=== PATIENT | female | born 1990 | race Hispanic/Latino ===

== ENCOUNTER 2017-10-13 09:24 | Observation (INO) | payer OTHER, MEDICAID ==
[~2017-10-13 09:24] MED LIST: FERR15DR26 PO; IRON-21 PO; PREN1TAB26 PO
== END 2017-10-13 10:52 | disposition home or self-care (01) ==
LOC: LDH 09:24
DX: Z34.93 Encounter for supervision of normal pregnancy, unspecified, third trimester (principal); Z3A.31 31 weeks gestation of pregnancy
CPT/HCPCS: 59025; 76819; G0378 ×2

== ENCOUNTER 2017-11-05 08:58 | Inpatient (IN) | payer OTHER, MEDICAID ==
[~2017-11-05] VITALS: Ht 149.9 cm; Wt 106.6 kg
[2017-11-05 09:44] VITALS: BP 114/53
[2017-11-05] MEDS ORDERED: LACTATED RINGERS 1000ML 1,000 ML IV PRN (11:05)
[2017-11-05] MEDS ORDERED: METOCLOPRAMIDE 10 MG/2 ML VIAL IVP SCH (11:15)
[2017-11-05] MEDS ORDERED: MORPHINE SULFATE 10 MG/ML 1ML SYG IM SCH (12:30)
[2017-11-05] MEDS ORDERED: ACETAMINOPHEN EXTENDED RELEASE 650 MG TABLET PO PRN (12:30)
[2017-11-06] MEDS ORDERED: LACTATED RINGERS 1000ML 1,000 ML IV SCH (08:45)
[2017-11-06] MEDS ORDERED: CEFAZOLIN SODIUM 1 GM VIAL IVP PRN (08:45)
[2017-11-06] MEDS ORDERED: CALDOLOR 800MG+NS 250ML 250 ML IV PRN (08:45)
[2017-11-06] MEDS ORDERED: CEFAZOLIN SODIUM 1 GM VIAL ONE (09:09)
[2017-11-06] MEDS ORDERED: CALDOLOR 800MG+NS 250ML 250 ML IV ONE (09:09)
[2017-11-06] MEDS ORDERED: OXYTOCIN 10 USP UNITS/ML ONE (09:09)
[2017-11-06 09:11] LABS: HEMATOCRIT 35.8 % (36-48); MEAN CORPUSCULAR HEMOGLOBIN 26.1 pg (27.0-33.0); MEAN CORPUSCULAR HGB CONC 33.3 g/dL (32.0-36.0); MEAN CORPUSCULAR VOLUME 78.4 fL (79-99); PLATELET COUNT (AUTO) 235 K/uL (130-400); RED BLOOD CELL COUNT(AUTO) 4.56 MIL/uL (4.00-5.50); RED CELL DISTRIBUTION WIDTH 15.5 % (11.0-15.5); WHITE BLOOD COUNT (AUTO) 11.3 K/uL (4.8-10.8)
[2017-11-06] MEDS ORDERED: EPHEDRINE-NS PF 50MG/5ML SYRINGE IV ONE (09:26)
[2017-11-06] MEDS ORDERED: CEFAZOLIN SODIUM 1 GM VIAL IVP ONE (09:30)
[2017-11-06] MEDS ORDERED: MIDAZOLAM HCL 1 MG/ML 2ML VIAL ONE (09:30)
[2017-11-06] MEDS ORDERED: OXYTOCIN 10 UNIT/1ML 10ML VIAL ONE (09:44)
[2017-11-06] MEDS ORDERED: OXYTOCIN-LR 20 UNITS/1000 ML 1,000 ML IV PRN ×2 (10:07→12:04)
[2017-11-06] MEDS ORDERED: BISACODYL 10 MG SUPP.RECT RC PRN (10:15)
[2017-11-06] MEDS ORDERED: PROMETHAZINE HCL 25 MG/ML 1ML AMPULE IM PRN ×2 (10:15→15:45)
[2017-11-06] MEDS ORDERED: NALOXONE HCL 0.4 MG/1 ML ML IVP PRN ×3 (10:15→15:45)
[2017-11-06] MEDS: IBUPROFEN 800 MG TAB PO SCH ×2 (10:15→18:15)
[2017-11-06] MEDS ORDERED: MEPERIDINE 10MG/ML 50ML PCA 50 ML IV PRN (10:15)
[2017-11-06] MEDS ORDERED: METOCLOPRAMIDE 10 MG/2 ML VIAL IV PRN (10:15)
[2017-11-06] MEDS ORDERED: ONDANSETRON HCL 4 MG/2 ML VIAL IV PRN (10:15)
[2017-11-06] MEDS ORDERED: DIPHENHYDRAMINE HCL 25 MG CAPSULE PO PRN (10:15)
[2017-11-06] MEDS ORDERED: SODIUM CHLORIDE 0.9% 10 ML VIAL IVP PRN (10:15)
[2017-11-06] MEDS ORDERED: MEPERIDINE-PF 25 MG/ML SYG ONE (11:49)
[2017-11-06 13:26] VITALS: BP 99/75
[2017-11-06] MEDS: MEPERIDINE-PF 75 MG/ML SYG IM PRN ×2 (14:19→18:49)
[2017-11-06] MEDS: PROMETHAZINE HCL 25 MG/ML 1ML AMPULE IM PRN (14:19)
[2017-11-06] MEDS ORDERED: PREN1COM14 PO (15:27)
[2017-11-06 15:41] VITALS: BP 104/47
[2017-11-06] MEDS ORDERED: METOCLOPRAMIDE 10 MG/2 ML VIAL IVP PRN (15:45)
[2017-11-06] MEDS ORDERED: DiphenhydrAMINE HCL 50 MG/ML VIAL IVP PRN (15:45)
[2017-11-06] MEDS ORDERED: ONDANSETRON HCL 4 MG/2 ML VIAL IVP PRN ×2 (15:45)
[2017-11-06] MEDS ORDERED: EPHEDRINE SULFATE 50 MG/ML AMPULE IVP PRN (15:45)
[2017-11-06] MEDS ORDERED: ONDANSETRON HCL 4 MG/2 ML 8 MG in SODIUM CHLORIDE 0.9% 50 ML IVP NR (15:45)
[2017-11-06] MEDS ORDERED: MORPHINE SULFATE 2 MG/ML 1ML SYG IVP PRN (15:45)
[2017-11-06] MEDS ORDERED: HYDROCODONE/ACETAMINOPHEN 5/325 MG TAB PO PRN (15:45)
[2017-11-06] MEDS: HYDROCODONE/ACETAMINOPHEN 5/325 MG TAB PO PRN ×2 (16:27→21:29)
[2017-11-06] MEDS: CEFAZOLIN 3GM /D5W 100ML 100 ML IV SCH (17:01)
[2017-11-06] MEDS: CALDOLOR 800MG+NS 250ML 250 ML IV SCH (18:48)
[2017-11-06 20:35] VITALS: BP 90/63
[2017-11-06] MEDS: SIMETHICONE 80 MG TAB.CHEW PO PRN ×2 (21:24→21:29)
[2017-11-06] MEDS: DEXTROSE 5 %-0.45 % NACL 1,000 ML IV PRN ×2 (21:24→23:24)
[2017-11-06] MEDS: DOCUSATE SODIUM 100 MG CAP PO SCH (21:24)
[2017-11-06 23:12] VITALS: BP 95/54
[2017-11-07] MEDS: CEFAZOLIN 3GM /D5W 100ML 100 ML IV SCH (01:02)
[2017-11-07] MEDS: CALDOLOR 800MG+NS 250ML 250 ML IV SCH (02:00)
[2017-11-07] MEDS: IBUPROFEN 800 MG TAB PO SCH ×2 (02:15→10:11)
[2017-11-07 03:55] VITALS: BP 98/55
[2017-11-07] MEDS: PROMETHAZINE HCL 25 MG/ML 1ML AMPULE IM PRN (05:01)
[2017-11-07] MEDS: MEPERIDINE-PF 75 MG/ML SYG IM PRN (05:02)
[2017-11-07 06:46] LABS: HEMATOCRIT 33.9 % (36-48); MEAN CORPUSCULAR HEMOGLOBIN 26.4 pg (27.0-33.0); MEAN CORPUSCULAR HGB CONC 33.2 g/dL (32.0-36.0); MEAN CORPUSCULAR VOLUME 79.7 fL (79-99); PLATELET COUNT (AUTO) 264 K/uL (130-400); RED BLOOD CELL COUNT(AUTO) 4.26 MIL/uL (4.00-5.50); RED CELL DISTRIBUTION WIDTH 15.7 % (11.0-15.5); WHITE BLOOD COUNT (AUTO) 11.6 K/uL (4.8-10.8)
[2017-11-07 07:37] VITALS: BP 101/62
[2017-11-07] MEDS ORDERED: DIPH,PERTUSS(ACELL),TET VAC/PF 0.5 ML VIAL IM SCH (08:15)
[2017-11-07] MEDS: DOCUSATE SODIUM 100 MG CAP PO SCH (08:38)
[2017-11-07] MEDS: SIMETHICONE 80 MG TAB.CHEW PO PRN (08:38)
[2017-11-07] MEDS: HYDROCODONE/ACETAMINOPHEN 5/325 MG TAB PO PRN ×3 (08:39→17:05)
[2017-11-07] MEDS ORDERED: LIDOCAINE 5% TOPICAL PATCH TP SCH (09:00)
[2017-11-07] MEDS ORDERED: IBUPROFEN 800 MG TAB PO SCH (10:15)
[2017-11-07 11:14] LABS: HEPATITIS Bs ANTIGEN SCREEN P Negative (Negative)
[2017-11-07 11:16] VITALS: BP 103/50
[2017-11-07 15:18] VITALS: BP 96/52
== END 2017-11-07 17:50 | disposition home or self-care (01) | DRG 765 ==
LOC: OBSVTOIN 08:58 → LDH 08:58 → WSH 11-06 13:25
PROC: 3E0234Z Introduction of Serum, Toxoid and Vaccine into Muscle, Percutaneous Approach (ICD-10-PCS; 2017-11-06)
PROC: 10D00Z1 Extraction of Products of Conception, Low, Open Approach (ICD-10-PCS; principal; 2017-11-06 09:00)
DX: O60.14X0 Preterm labor third trimester with preterm delivery third trimester, not applicable or unspecified (principal); O75.3 Other infection during labor; A41.9 Sepsis, unspecified organism; O41.03X0 Oligohydramnios, third trimester, not applicable or unspecified; O24.420 Gestational diabetes mellitus in childbirth, diet controlled; O34.211 Maternal care for low transverse scar from previous cesarean delivery; O99.89 Other specified diseases and conditions complicating pregnancy, childbirth and the puerperium; Z37.0 Single live birth; Z3A.35 35 weeks gestation of pregnancy; Z23 Encounter for immunization
CPT/HCPCS: 36415; 59025; 59510; 76819; 82947; 82948; 85027; 86592; 86850; 86900; 86901; 87340; 90715; 96360; 96361; A4344; A4606; J0690; J1741; J2175; J2250; J2405; J2550; J2590; J2765; J3490; J7120

== ENCOUNTER 2017-11-15 18:48 | Emergency (ER) | payer OTHER, MEDICAID ==
[~2017-11-15 18:48] MED LIST changes: -FERR15DR26 PO; -IRON-21 PO; +PREN1COM14 PO; -PREN1TAB26 PO
[2017-11-15] MEDS ORDERED: CEPHALEXIN 500 MG CAPSULE ONE (19:42)
== END 2017-11-15 21:10 | disposition home or self-care (01) ==
LOC: EDH 18:48
DX: T81.4XXA Infection following a procedure, initial encounter (principal); Y83.8 Other surgical procedures as the cause of abnormal reaction of the patient, or of later complication, without mention of misadventure at the time of the procedure; Y92.89 Other specified places as the place of occurrence of the external cause

== ENCOUNTER 2021-04-11 11:52 | Emergency (ER) | payer MEDICAID, OTHER ==
[~2021-04-11] VITALS: Ht 152.4 cm; Wt 90.7 kg
[2021-04-11 11:54] VITALS: BP 116/69
[2021-04-11 13:18] LABS: CREATININE 0.5 mg/dL (0.5-1.5); POTASSIUM 3.6 mmol/L (3.5-5.1)
[2021-04-11 13:20] LABS: BASOPHILS % (AUTO) 0.2 % (0.0-5.0); EOSINOPHILS % (AUTO) 2.4 % (0.0-8.0); HEMATOCRIT 40.1 % (36-48); MEAN CORPUSCULAR HEMOGLOBIN 25.2 pg (27.0-33.0); MEAN CORPUSCULAR HGB CONC 32.2 g/dL (32.0-36.0); MEAN CORPUSCULAR VOLUME 78.5 fL (79-99); MONOCYTES % (AUTO) 5.5 % (3.0-13.0); NEUTROPHILS % (AUTO) 73.6 % (40.0-77.0); PLATELET COUNT (AUTO) 293 K/uL (130-400); RED BLOOD CELL COUNT(AUTO) 5.11 MIL/uL (4.00-5.50); RED CELL DISTRIBUTION WIDTH 15.6 % (11.0-15.5); WHITE BLOOD COUNT (AUTO) 10.6 K/uL (4.8-10.8)
[2021-04-11 13:46] LABS: ALBUMIN 3.6 g/dL (3.5-5.0); BILIRUBIN,TOTAL 0.2 mg/dL (0.2-1.0); TOTAL PROTEIN, SERUM 8.6 g/dL (6.0-8.3)
[2021-04-11] MEDS ORDERED: CEFTRIAXONE 1G VIAL IVP SCH (14:30)
[2021-04-11] MEDS ORDERED: ACETAMINOPHEN 325 MG TAB PO ONE (14:30)
[2021-04-11] MEDS ORDERED: PNV1TABL17 PO (14:49)
[2021-04-11] MEDS ORDERED: DIPH25 PO (14:49)
[2021-04-11] MEDS ORDERED: CEPH500B PO (14:49)
== END 2021-04-11 16:00 | disposition home or self-care (01) ==
LOC: EDH 11:52
DX: O20.0 Threatened abortion (principal); O99.891 Other specified diseases and conditions complicating pregnancy; H60.91 Unspecified otitis externa, right ear; Z3A.01 Less than 8 weeks gestation of pregnancy; Z98.890 Other specified postprocedural states; Z79.899 Other long term (current) drug therapy
CPT/HCPCS: 36415; 76817; 80053; 84702; 84703; 85025; 86900; 86901; 96374; 99284; J0696